=== PATIENT | male | born 2000 | race Two or more races ===

== ENCOUNTER 2023-08-10 02:55 | Emergency (ER) | payer SELFPAY ==
[~2023-08-10] VITALS: Ht 160 cm; Wt 119.8 kg
[2023-08-10 05:28] VITALS: BP 120/64; PULSE 75; RESP 16; TEMP 98; O2SAT 97
== END 2023-08-10 05:33 | disposition home or self-care (01) ==
LOC: ER 02:55
DX: F41.0 Panic disorder [episodic paroxysmal anxiety] (principal); R07.89 Other chest pain
CPT/HCPCS: 93005